=== PATIENT | male | born 1995 | race African-American/Black ===

== ENCOUNTER 2022-05-22 16:58 | Emergency (ER) | payer OTHER ==
[~2022-05-22] VITALS: Ht 162.6 cm; Wt 59.0 kg
[2022-05-22 20:34] VITALS: BP 144/78; TEMP 99.3
== END 2022-05-22 20:36 | disposition home or self-care (01) ==
LOC: ED 16:58
PROC: 2W3KX1Z Immobilization of Left Finger using Splint (ICD-10-PCS; principal; 2022-05-22)
PROC: 0HQGXZZ Repair Left Hand Skin, External Approach (ICD-10-PCS; 2022-05-22)
DX: S67.191A Crushing injury of left index finger, initial encounter (principal); S62.611B Displaced fracture of proximal phalanx of left index finger, initial encounter for open fracture; W23.0XXA Caught, crushed, jammed, or pinched between moving objects, initial encounter; Y92.89 Other specified places as the place of occurrence of the external cause
CPT/HCPCS: 90471; 90715; 96372; 99284; J0696; J1885; J2175; J2405